=== PATIENT | male | born 1970 | race Caucasian/White ===

== ENCOUNTER 2020-08-19 16:21 | Emergency (ER) | payer OTHER ==
[2020-08-19 16:45] VITALS: BP 147/89; PULSE 70; TEMP 98.8; BMI 27.8
[2020-08-19] MEDS ORDERED: KETOROLAC TROMETHAMINE 30 MG/1 ML VIAL IM ONE (16:53)
[2020-08-19] MEDS ORDERED: LIDOCAINE 5% TOPICAL PATCH TP ONE (16:53)
[2020-08-19] MEDS ORDERED: KETOROLAC TROMETHAMINE 30 MG/1 ML VIAL ONE (16:56)
[2020-08-19] MEDS ORDERED: LIDOCAINE 5% TOPICAL PATCH ONE (16:56)
[2020-08-19] MEDS ORDERED: LIDOCAINE PATCH REMOVAL MC SCH (22:00)
== END 2020-08-19 17:29 | disposition home or self-care (01) ==
LOC: JER 16:21 → JERFT 16:21
PROC: 3E0233Z Introduction of Anti-inflammatory into Muscle, Percutaneous Approach (ICD-10-PCS; principal; 2020-08-19)
DX: M54.5 Low back pain (principal)
CPT/HCPCS: 99284-25